=== PATIENT | male | born 1980 | race African-American/Black ===

== ENCOUNTER 2016-12-17 09:01 | Emergency (ER) | payer OTHER ==
[~2016-12-17] VITALS: Ht 188 cm; Wt 113.4 kg
[2016-12-17 09:50] VITALS: BP 155/95
== END 2016-12-17 09:51 | disposition home or self-care (01) ==
LOC: ER 09:01
DX: S61.411A Laceration without foreign body of right hand, initial encounter (principal); F17.210 Nicotine dependence, cigarettes, uncomplicated; F10.99 Alcohol use, unspecified with unspecified alcohol-induced disorder; W29.8XXA Contact with other powered hand tools and household machinery, initial encounter; Y93.89 Activity, other specified; Y92.89 Other specified places as the place of occurrence of the external cause; Y99.8 Other external cause status